=== PATIENT | female | born 1950 | race Caucasian/White ===

== ENCOUNTER → 2017-07-30 | Outpatient (CLI) | payer MEDICARE ==
[~2017-07-30] MED LIST: ATENOLOL DAILY; DULOXETINE
--- NOTE | 2017-07-30 10:36 | Diagnostic Imaging Report ---
INDICATION: Osteopenia. FINDINGS: Bone mineral analysis of the lumbar spine and both hips was performed. The bone mineral density of the lumbar spine from L2 to L4 is 1.036 with a T score of -1.4. The bone mineral density of the left femoral neck is 0.695 with a T score of -2.5. The bone mineral density of the right femoral neck is 0.704 with a T score of -2.4. IMPRESSION: Findings are consistent with osteopenia of the lumbar spine and right femoral neck with osteoporosis of the left femoral neck. Dictated by: Dictated on workstation # [id number]
== END ==
LOC: RAD 09:11
PROVIDERS: ATTEND Nurse Practitioner Family
DX: M85.88 Other specified disorders of bone density and structure, other site (principal); M81.0 Age-related osteoporosis without current pathological fracture
CPT/HCPCS: 77080

== ENCOUNTER 2017-09-01 13:00 | Outpatient (CLI) | payer MEDICARE ==
[~2017-09-01] VITALS: Ht 175.3 cm; Wt 72.6 kg
[~2017-09-01 13:00] MED LIST changes: +ALPR0.254 PO; +ASPI-999 PO; +ATEN100T PO; +BUSP10TA95 PO; +DULO60CA58 PO; +LEVO25TA5 PO; +LYSI500T37 PO; +OMEG-160 PO; +PARO20TA5 PO; +PRAV10TA PO
[2017-09-02] MEDS ORDERED: PANT40TA2 PO (12:24)
[2017-09-14] MEDS ORDERED: ATEN25TA PO (14:04)
== END 2017-09-01 13:45 ==
LOC: PREOP 13:00
PROVIDERS: ATTEND Surgery
DX: Z01.818 Encounter for other preprocedural examination (principal); Z12.11 Encounter for screening for malignant neoplasm of colon; K21.9 Gastro-esophageal reflux disease without esophagitis; Z80.0 Family history of malignant neoplasm of digestive organs

== ENCOUNTER 2017-09-02 09:57 | Day surgery (SDC) | payer MEDICARE ==
[~2017-09-02] VITALS: Ht 175.3 cm; Wt 72.6 kg
[2017-09-02 10:00] VITALS: BP 118/67
--- OUTSIDE RECORDS SUMMARY | 2017-09-02 10:02 | XMS REPORT | Continuity of Care Document ---
Author Author [facility] Organization [facility] Address Unknown Phone Unavailable Allergies Active Description Code Type Severity Reaction Onset Reported/Identified Relationship to Patient Clinical Status Yes alprazolam [id number] Drug Allergy Mild N/A 04/22/2011 Yes No Known Drug Allergies [id number] Drug Allergy Unknown N/A 09/01/2017 Medications There is no data. Problems Date Dx Coded Attending Type Code Diagnosis Diagnosed By 04/17/2014 KALIN HURLEY MD Ot V76.12 04/22/2014 KALIN HURLEY MD Ot V76.12 05/11/2014 KALIN HURLEY MD Ot V76.12 08/01/2014 Ot 611.72 08/01/2014 Ot V76.12 08/01/2014 Ot 793.80 08/01/2014 Ot V76.12 08/01/2014 Ot 530.89 08/01/2014 Ot V76.51 08/01/2014 Ot V76.12 08/28/2014 KALIN HURLEY MD Ot V76.12 08/28/2014 KALIN HURLEY MD Ot V76.12 08/29/2014 KALIN HURLEY MD Ot V76.12 08/29/2014 KALIN HURLEY MD Ot V76.12 09/06/2014 KALIN HURLEY MD Ot V76.12 09/06/2014 KALIN HURLEY MD Ot V76.12 09/06/2014 TAYLOR PRASAD Ot 789.03 09/08/2014 Ot 611.72 09/08/2014 Ot V76.12 09/08/2014 Ot 793.80 09/08/2014 Ot V76.12 09/08/2014 Ot 530.89 09/08/2014 Ot V76.51 09/08/2014 Ot V76.12 09/30/2014 KALIN HURLEY MD Ot V76.12 09/30/2014 MEI HANLEY, KALIN Thapa Ot V76.12 09/30/2014 TAYLOR PRASAD WIRE COILER MACHINE OPERATOR Ot 789.03 10/20/2014 MEI HANLEY, KALIN Thapa Ot V76.12 10/20/2014 MEI HANLEY, KALIN Thapa Ot V76.12 10/20/2014 TAYLOR PRASAD WIRE COILER MACHINE OPERATOR Ot 789.03 07/27/2017 TAYLOR PRASAD WIRE COILER MACHINE OPERATOR Ot M85.851 OTH DISRD OF BONE DENSITY AND STRUCTURE, 07/30/2017 MEI HANLEY, KALIN Thapa Ot V76.12 OTH SCREEN MAMMO-MALIGN NEOPLASM OF DIO 07/30/2017 MEI HANLEY, KALIN Thapa Ot V76.12 OTH SCREEN MAMMO-MALIGN NEOPLASM OF DIO 07/30/2017 TAYLOR PRASAD WIRE COILER MACHINE OPERATOR Ot 789.03 ABDOMINAL PAIN, RIGHT LOWER QUADRANT 07/30/2017 TAYLOR PRASAD WIRE COILER MACHINE OPERATOR Ot M85.851 OTH DISRD OF BONE DENSITY AND STRUCTURE, 07/30/2017 TAYLOR PRASAD WIRE COILER MACHINE OPERATOR Ot M85.851 OTH DISRD OF BONE DENSITY AND STRUCTURE, 07/31/2017 TAYLOR PRASAD WIRE COILER MACHINE OPERATOR Ot M81.0 AGE-RELATED OSTEOPOROSIS W/O CURRENT PAT 07/31/2017 TAYLOR PRASAD WIRE COILER MACHINE OPERATOR Ot M85.88 OTH DISRD OF BONE DENSITY AND STRUCTURE, 08/24/2017 TAYLOR PRASAD WIRE COILER MACHINE OPERATOR Ot M81.0 AGE-RELATED OSTEOPOROSIS W/O CURRENT PAT 08/24/2017 TAYLOR PRASAD WIRE COILER MACHINE OPERATOR Ot M85.88 OTH DISRD OF BONE DENSITY AND STRUCTURE, 09/01/2017 LEVY RICHARDS MD Ot K21.9 GASTRO-ESOPHAGEAL REFLUX DISEASE WITHOUT 09/01/2017 LEVY RICHARDS MD Ot Z01.818 ENCOUNTER FOR OTHER PREPROCEDURAL EXAMIN 09/01/2017 LEVY RICHARDS MD Ot Z12.11 ENCOUNTER FOR SCREENING FOR MALIGNANT NE 09/01/2017 LEVY RICHARDS MD Ot Z80.0 FAMILY HISTORY OF MALIGNANT NEOPLASM OF 09/01/2017 LEVY RICHARDS MD Ot K21.9 GASTRO-ESOPHAGEAL REFLUX DISEASE WITHOUT 09/01/2017 LEVY RICHARDS MD Ot Z01.818 ENCOUNTER FOR OTHER PREPROCEDURAL EXAMIN 09/01/2017 LEVY RICHARDS MD Ot Z12.11 ENCOUNTER FOR SCREENING FOR MALIGNANT NE 09/01/2017 LEVY RICHARDS MD M Ot Z80.0 FAMILY HISTORY OF MALIGNANT NEOPLASM OF 09/01/2017 LEVY RICHARDS MD Ot K21.9 GASTRO-ESOPHAGEAL REFLUX DISEASE WITHOUT 09/01/2017 LEVY RICHARDS MD Ot Z01.818 ENCOUNTER FOR OTHER PREPROCEDURAL EXAMIN 09/01/2017 LEVY RICHARDS MD Ot Z12.11 ENCOUNTER FOR SCREENING FOR MALIGNANT NE 09/01/2017 LEVY RICHARDS MD M Ot Z80.0 FAMILY HISTORY OF MALIGNANT NEOPLASM OF 09/01/2017 LEVY RICHARDS MD Ot K21.9 GASTRO-ESOPHAGEAL REFLUX DISEASE WITHOUT 09/01/2017 LEVY RICHARDS MD Ot Z01.818 ENCOUNTER FOR OTHER PREPROCEDURAL EXAMIN 09/01/2017 LEVY RICHARDS MD Ot Z12.11 ENCOUNTER FOR SCREENING FOR MALIGNANT NE 09/01/2017 LEVY RICHARDS MD Ot Z80.0 FAMILY HISTORY OF MALIGNANT NEOPLASM OF 09/02/2017 LEVY RICHARDS MD Ot K21.9 GASTRO-ESOPHAGEAL REFLUX DISEASE WITHOUT 09/02/2017 LEVY RICHARDS MD M Ot Z01.818 ENCOUNTER FOR OTHER PREPROCEDURAL EXAMIN 09/02/2017 LEVY RICHARDS MD Ot Z12.11 ENCOUNTER FOR SCREENING FOR MALIGNANT NE 09/02/2017 LEVY RICHARDS MD Ot Z80.0 FAMILY HISTORY OF MALIGNANT NEOPLASM OF Procedures There is no data. Results There is no data. Encounters ACCT No. Visit Date/Time Discharge Status Pt. Type Provider Facility Loc./Unit Complaint [id number] 09/01/2017 13:00:00 09/01/2017 13:45:00 DIS Outpatient LEVY RICHARDS MD [facility] PREOP COLONOSCOPY/EGD [id number] 07/30/2017 09:30:00 07/30/2017 23:59:59 CLS Outpatient TAYLOR PRASAD [facility] RAD OSTEOPENIA [id number] 08/29/2014 09:02:00 08/29/2014 23:59:59 CLS Outpatient TAYLOR PRASAD [facility] RAD RLQ PAIN [id number] 04/20/2014 08:15:00 04/20/2014 23:59:59 CLS Outpatient KALIN HURLEY MD [facility] RAD ROUTINE [id number] 04/13/2013 13:23:00 04/13/2013 23:59:59 CLS Outpatient KALIN HURLEY MD [facility] RAD SCREENING [id number] 09/02/2017 11:00:00 PEN Preadmit KATE MENDOZA MD [facility] ENDO SCREENING/FAMILY HX COLON CA/REFLUX [id number] 08/01/2014 11:25:00 Document Registration [id number] 08/01/2014 11:25:00 Document Registration [id number] 08/01/2014 11:25:00 Document Registration [id number] 01/29/2012 07:14:00 Document Registration [id number] 04/22/2011 06:47:00 Document Registration [id number] 04/17/2010 10:52:00 Document Registration [id number] 04/17/2009 14:40:00 Document Registration [id number] 04/12/2009 07:12:00 Document Registration [id number] 02/09/2017 09:38:07 02/09/2017 23:59:59 CLS Outpatient [id number] 08/29/2014 09:03:20 ACT Document Registration
[2017-09-02] MEDS: NS IV 500 ML 500 ML IV PRN ×2 (10:05→11:17)
[2017-09-02] MEDS ORDERED: NS IV 500 ML 500 ML ONE ×2 (10:11→11:12)
[2017-09-02] MEDS ORDERED: fentaNYL INJECTION 100 MCG/2 ML AMP IVP PRN (10:15)
[2017-09-02] MEDS ORDERED: HURRICAINE EXT TUBE (BENZOCAINE) XX PRN (10:15)
[2017-09-02] MEDS ORDERED: MIDAZOLAM 2 MG/2 ML (VERSED) VIAL IVP PRN (10:15)
[2017-09-02] MEDS ORDERED: LIDOCAINE JELLY 2% (XYLOCAINE) 5 ML TUBE MM PRN (10:15)
--- NOTE | 2017-09-02 10:34 | Conscious Sedation/ASA ---
Conscious Sedation Pre-Proced Time Reviewed: 10:30 ASA Class: 2 Airway Mallampati Classification: ([place] appropriate class) I. II. III, IV Lungs Heart ASA score ASA 1: a normal healthy patient ASA 2: a patient with a mild systemic disease (mid diabetes, controlled hypertension, obesity ASA 3: a patient with a severe systemic disease that limits activity (angina , COPD, prior Myocardial infarction) ASA 4: a patient with an incapacitating disease that is a constant threat to life (CHF, renal failure) ASA 5: a moribund patient not expected to survive 24 hrs. (ruptured aneurysm) ASA 6: a declared brain patient whose organs are being harvested. For emergent operations, add the letter E after the classification Grade 2 Sedation Plan: Analgesia, Amnesia, Plan communicated to team members, Discussed options with patient/fam, Discussed risks with patient/fam Note The patient is an appropriate candidate to undergo the planned procedure, sedation, and anesthesia. The patient immediately re-assessed prior to indication. KAET MENDOZA MD September 02, 2017 10:34 am
--- NOTE | 2017-09-02 10:35 | Progress Note-Pre Operative ---
Pre-Operative Progress Note H&P Reviewed The H&P was reviewed, patient examined and no changes noted. Date Seen by Provider: September 02, 2017 Time Seen by Provider: 10:30 Date H&P Reviewed: September 02, 2017 Time H&P Reviewed: 10:30 Pre-Operative Diagnosis: GERD, family hx colon ca KATE MENDOZA MD September 02, 2017 10:35 am
[2017-09-02] MEDS ORDERED: MIDAZOLAM 2 MG/2 ML (VERSED) VIAL ONE ×3 (10:37)
[2017-09-02] MEDS ORDERED: LIDOCAINE JELLY 2% (XYLOCAINE) 5 ML TUBE ONE (10:38)
[2017-09-02] MEDS ORDERED: fentaNYL INJECTION 100 MCG/2 ML AMP ONE ×2 (10:38)
[2017-09-02] MEDS ORDERED: HURRICAINE EXT TUBE (BENZOCAINE) ONE (10:38)
[2017-09-02] MEDS ORDERED: ONDANSETRON 4 MG/2 ML (SDV) Z0FRAN IV PRN (10:45)
[2017-09-02] MEDS ORDERED: morphine INJ 10 MG/ML 1ML (SYR OR VIAL) IV PRN (10:45)
[2017-09-02] MEDS ORDERED: HYDROcodone/APAP 5 MG/325 MG (LORTAB) TAB PO PRN (10:45)
[2017-09-02] MEDS: MIDAZOLAM 2 MG/2 ML (VERSED) VIAL IVP PRN ×5 (10:45→11:43)
[2017-09-02] MEDS ORDERED: ACETAMINOPHEN 325 MG TABLET/CAPLET (TYLENOL) PO PRN (10:45)
[2017-09-02] MEDS: fentaNYL INJECTION 100 MCG/2 ML AMP IVP PRN ×4 (11:21→11:58)
[2017-09-02] MEDS ORDERED: PANT40TA2 PO (12:24)
--- NOTE | 2017-09-02 12:24 | Progress Note-Post Operative ---
Post-Operative Progess Note Surgeon (s)/Materials Supervisor (s) Surgeon KATE MENDOZA MD Materials Supervisor: none Pre-Operative Diagnosis GERD, family hx colon ca Post-Operative Diagnosis reflux esophagitis(class B-C), moderate gastritis. chronic stage 1 ext and int hemorrhoids. Procedure & Operative Findings Date of Procedure 09/02/17 Procedure Performed/Findings EGD with bx. Colonoscopy. Anesthesia Type CS Estimated Blood Loss Estimated blood loss (mL): minimal Specimens/Packing Specimens Removed GE jxn, antrum KATE MENDOZA MD September 02, 2017 12:24 pm
--- NOTE | 2017-09-02 12:25 | Discharge Inst-Surgical ---
D/C Lap Instructions-KIDO New, Converted, or Re-Newed RX: RX on Chart Follow Up 5 yrs Activity as tolerated High Fiber Diet 25g or more per day Avoid Alcohol, Caffeine, Spicy [place] and Acid foods. Drink 64 fluid oz or more of fluids per day. Symptoms to Report: Fever over 101 degree F, Nausea/Vomiting If any problems/questions: Contact your physician or go to Emergency Room KATE MENDOZA MD September 02, 2017 12:25 pm
[2017-09-02 12:30] VITALS: BP 116/64
[2017-09-02 13:00] VITALS: BP 100/45
--- NOTE | 2017-09-02 22:37 | OPERATIVE REPORT ---
DATE OF SERVICE: 09/02/2017 ATTENDING PHYSICIAN: Dr. Casi Penn. PREOPERATIVE DIAGNOSES: Gastroesophageal reflux disease, family history of colon cancer. POSTOPERATIVE DIAGNOSES: Reflux esophagitis between class B and C. No hiatal hernia. Moderate gastritis. Mild chronic stage I external and internal hemorrhoids. Remainder of the rectum and colon were normal. PROCEDURE: EGD with biopsy, colonoscopy. SURGEON: Kate Mendoza MD ANESTHESIA: Conscious sedation. ESTIMATED BLOOD LOSS: Minimal. FINDINGS: EGD, reflux esophagitis between class B and C. No hiatal hernia. Moderate severity gastritis. Pylorus and duodenum appeared normal. Colonoscopy, chronic, mild stage I external and internal hemorrhoids. Remainder of the rectum and colon were normal. There were no polyps identified. DISPOSITION: The patient tolerated the procedure well. INDICATIONS: The patient is a 67-year-old female who has had issues with gastroesophageal reflux disease. She reports that she has had this for some amount of time; however, symptoms have worsened. She was on Omeprazole before, however, states that she had read potential negative side effects and discontinued the medication. She reports epigastric burning sensation as well as crampy pain. She also does have a family history of colon cancer with her mother being diagnosed with the disease at age 85. She does not report any red blood per rectum nor any dark tarry stools. DESCRIPTION OF PROCEDURE: The patient was brought to the endoscopy suite, laid in the left lateral decubitus position. After adequate IV pain and sedating medications and conscious sedation anesthesia, the mouthpiece was applied. Endoscope was placed in the mouth, visualizing the pharynx and hypopharyngeal region. Vocal cords, epiglottis, and vallecula identified and appeared to be normal. The endoscope was then gently intubated into the esophageal opening and esophagus insufflated. The endoscope was then advanced to the first, second and third portion of the esophagus at the level of the GE junction. A significant reflux esophagitis between class B and C identified. The biopsies were taken with forceps with visualization of good hemostasis. No strictures identified. The endoscope was then easily advanced in the stomach and endoscope retroflexed visualizing no hiatal hernia. Moderate severity gastritis was noted of the stomach antrum with mild superficial erosions. A biopsy was taken of the stomach, antrum with forceps with visualization good hemostasis. The endoscope was then advanced to the pylorus into the first and second portion of the duodenum, which appeared normal with no distal obstructions. The endoscope was then slowly withdrawn taking a second look and suctioning of residual air with no additional findings. The patient tolerated this portion of the procedure well. Due to her significant reflux esophagitis as well as gastritis, we do recommend a proton pump inhibitor acid record changer assembler. The side effect profile is a factor; however, the risk is low and the benefits do outweigh the risks in her scenario. We will start her on Protonix 40 mg daily as well as the necessary lifestyle and diet accommodation including small and more frequent meals, avoidance of eating at night as well as head elevation while lying supine. She also needs to avoid caffeinated beverages, spicy, greasy, and acidic foods. Under the same anesthesia, we then proceeded with the colonoscopy portion of the procedure. A digital rectal examination was performed, which revealed chronic mild stage I external and internal hemorrhoids, not actively edematous nor inflamed and no bleeding. Normal sphincter tone was felt and there were no palpable masses. The endoscope was then intubated into the anus and rectum, gently insufflated. The endoscope was then advanced to the valves adhesing the rectum with no polyps or neoplasm identified. We then proceeded through the sigmoid colon where no diverticulosis identified. We then proceeded through the remainder of the descending, transverse, and ascending colon to the cecum. These segments were normal. There were no polyps or any neoplasms identified. The endoscope was then slowly withdrawn and we are taking a second look and suctioning of residual air with no additional findings. The patient tolerated the procedure well. We will recommend continued medical management with a high fiber diet with at least 25 to 30 grams of fiber per day as well as at least 64 fluid ounces of water daily to promote soft stools on a daily basis. Because of her family history of colon cancer, we will recommend a followup colonoscopy in approximately 5 years. Job ID: [id number] DocumentID: [id number] Dictated Date: 09/02/2017 12:16:48 Contour Band Saw Operator Vertical Date: 09/02/2017 22:36:32 Dictated By: KATE MENDOZA MD
[2017-09-14] MEDS ORDERED: ATEN25TA PO (14:04)
== END 2017-09-02 13:05 | disposition home or self-care (01) ==
LOC: ENDO 09:57
PROVIDERS: ATTEND Surgery
DX: K21.0 Gastro-esophageal reflux disease with esophagitis (principal); K64.0 First degree hemorrhoids; Z80.0 Family history of malignant neoplasm of digestive organs; K29.70 Gastritis, unspecified, without bleeding; F41.9 Anxiety disorder, unspecified; F32.9 Major depressive disorder, single episode, unspecified; M81.0 Age-related osteoporosis without current pathological fracture; E78.00 Pure hypercholesterolemia, unspecified; E03.9 Hypothyroidism, unspecified; I34.1 Nonrheumatic mitral (valve) prolapse; Z79.899 Other long term (current) drug therapy; Z83.71 Family history of colonic polyps
CPT/HCPCS: 88305

== ENCOUNTER → 2017-09-14 | Outpatient (CLI) | payer MEDICARE ==
[~2017-09-14] VITALS: Ht 175.3 cm; Wt 71.2 kg
[~2017-09-14] MED LIST changes: +ATEN25TA PO; +DENOSUMAB 60 MG/1 ML (PROLIA) SQ SCH; +PANT40TA2 PO
[2017-09-14 14:26] VITALS: BP 120/58
== END ==
LOC: SDC 13:29
PROVIDERS: ATTEND Family Medicine
DX: M81.0 Age-related osteoporosis without current pathological fracture (principal)
CPT/HCPCS: 96372

== ENCOUNTER → 2018-03-22 | Outpatient (CLI) | payer MEDICARE ==
[~2018-03-22] VITALS: Ht 175.3 cm; Wt 71.2 kg
[2018-03-22 13:30] VITALS: BP 123/61
== END ==
LOC: SDC 13:12
PROVIDERS: ATTEND Family Medicine
DX: M81.0 Age-related osteoporosis without current pathological fracture (principal)
CPT/HCPCS: 96372

== ENCOUNTER 2018-09-20 12:51 | Outpatient (CLI) | payer MEDICARE ==
[~2018-09-20] VITALS: Ht 175.3 cm; Wt 71.2 kg
[~2018-09-20 12:51] MED LIST changes: -DENOSUMAB 60 MG/1 ML (PROLIA) SQ SCH
[2018-09-20 13:15] VITALS: BP 112/70
[2018-09-20] MEDS ORDERED: DENOSUMAB 60 MG/1 ML (PROLIA) SQ ONE (13:15)
== END 2018-09-20 13:15 | disposition home or self-care (01) ==
LOC: SDC 12:51
PROVIDERS: ATTEND Nurse Practitioner Family
DX: M81.0 Age-related osteoporosis without current pathological fracture (principal)
CPT/HCPCS: 96372

== ENCOUNTER → 2019-03-28 | Outpatient (CLI) | payer MEDICARE ==
[~2019-03-28] VITALS: Ht 170 cm; Wt 70.0 kg
[~2019-03-28] MED LIST changes: +DENOSUMAB 60 MG/1 ML (PROLIA) SQ ONE; -DULO60CA58 PO; +DULO60CA59 PO
[2019-03-28 13:30] VITALS: BP 117/47
== END ==
LOC: SDC 13:09
PROVIDERS: ATTEND Nurse Practitioner Family
DX: M81.0 Age-related osteoporosis without current pathological fracture (principal)
CPT/HCPCS: 96372

== ENCOUNTER → 2019-09-27 | Outpatient (CLI) | payer MEDICARE ==
[~2019-09-27] MED LIST changes: -DENOSUMAB 60 MG/1 ML (PROLIA) SQ ONE; +DENOSUMAB 60 MG/1 ML (PROLIA) SQ SCH
[2019-09-27 13:29] VITALS: BP 128/65
== END ==
LOC: SDC 13:05
PROVIDERS: ATTEND Nurse Practitioner Family
DX: M81.0 Age-related osteoporosis without current pathological fracture (principal)
CPT/HCPCS: 96372

== ENCOUNTER 2020-04-02 12:59 | Outpatient (CLI) | payer MEDICARE, OTHER ==
[~2020-04-02 12:59] MED LIST changes: +ALPR.25T PO; -ALPR0.254 PO; -DENOSUMAB 60 MG/1 ML (PROLIA) SQ SCH
[2020-04-02 13:15] VITALS: BP 106/74
[2020-04-02] MEDS ORDERED: DENOSUMAB 60 MG/1 ML (PROLIA) SQ ONE (13:15)
== END 2020-04-02 13:22 | disposition home or self-care (01) ==
LOC: SDC 12:59
PROVIDERS: ATTEND Nurse Practitioner Family
DX: M81.0 Age-related osteoporosis without current pathological fracture (principal)
CPT/HCPCS: 96372

== ENCOUNTER → 2020-07-30 | Outpatient (CLI) | payer MEDICARE, OTHER | LOC: CARD 12:41 | PROVIDERS: ATTEND Nurse Practitioner Family | DX: R06.02 Shortness of breath (principal); I10 Essential (primary) hypertension | CPT/HCPCS: 93306 ==

== ENCOUNTER → 2020-09-11 | Outpatient (CLI) | payer MEDICARE ==
--- NOTE | 2020-09-11 11:30 | Diagnostic Imaging Report ---
INDICATION: Postmenopausal. COMPARISON: 07/30/2017 FINDINGS: The total T score for the spine is -1.6. On the prior exam the T score is -1.4. The total T score for each hip is -1.1. Previously the T score for the left hip is -1.2 and for the right hip -1.6. The T score for the left femoral neck is -2.3 and for the right femoral neck -2.0. The respective T-scores on the prior exam are -2.5 and -2.4. AP Spine L1-L4: [BMD (g/cm2): 1.005] [T-Score: -1.6] [Z-Score: -0.1] [BMD Previous: 1.036] [BMD % Change: -3.0] LT Hip Neck: [BMD (g/cm2): 0.723] [T-Score: -2.3] [Z-Score: -0.6] LT Hip Total: [BMD (g/cm2):0.873] [T-Score:-1.1] [Z-Score: 0.3] [BMD Previous: 0.853] [BMD % Change: 2.1] RT Hip Neck: [BMD (g/cm2):0.754] [T-Score:-2.0] [Z-Score:-0.4] RT Hip Total: [BMD (g/cm2):0.867] [T-score:-1.1] [Z-Score:0.3] [BMD Previous:0.808] [BMD % Change:7.3] *Indicates significant change from prior examination based on 95% confidence level. World Health Organization criteria for BMD interpretation classify patients as Normal (T-score at or above -1.0), Osteopenic (T-score between -1.0 and -2.5) or Osteoporotic (T-score at or below -2.5). LIMITATIONS AND MODIFICATION: None. FRACTURE RISK (FRAX SCORE): The ten year probability of (%): Major Osteoporotic Fracture: [13.5] Hip Fracture: [3.3] IMPRESSION: 1. There are mixed results. There has been a slight decrease in the bone mineral density of the spine and a slight increase in the bone mineral density of each total hip. All these values still fall within the range of osteopenia. 2. There has also been a slight increase in the bone mineral density of each femoral neck. However, the T score values still indicate severe osteopenia. 3. See below National Osteoporosis Foundation guidelines on when to potentially initiate pharmacologic therapy. Based on the National Osteoporosis Foundation Guidelines, pharmacologic treatment should be initiated in any of the following, unless clinical conditions suggest otherwise: * Any patient with prior fragility fracture of the hip or vertebrae. A spine fracture indicates 5X risk for subsequent spine fracture and 2X risk for subsequent hip fracture. * Osteoporosis (T-score <-2.5). * Postmenopausal women and men age 50 and older with low bone mass/osteopenia (T-score between -1.0 and -2.5) by DXA and 10-year major osteoporotic fracture greater than 20% or a 10-year probability of hip fracture greater than 3%. These fracture risks are supplied above in the FRAX score, if applicable. * Clinician judgement and/or patient preferences may indicate treatment for people with 10-year fracture probabilities above or below these levels. Dictated by: Dictated on workstation # [id number]
== END ==
LOC: RAD 10:30
PROVIDERS: ATTEND Nurse Practitioner Family
DX: M85.80 Other specified disorders of bone density and structure, unspecified site (principal); Z78.0 Asymptomatic menopausal state
CPT/HCPCS: 77080

== ENCOUNTER → 2020-10-05 | Outpatient (CLI) | payer MEDICARE ==
[~2020-10-05] MED LIST changes: +DENOSUMAB 60 MG/1 ML (PROLIA) SQ ONE
[2020-10-05 13:27] VITALS: BP 118/58
== END ==
LOC: SDC 13:08
PROVIDERS: ATTEND Nurse Practitioner Family
DX: M81.0 Age-related osteoporosis without current pathological fracture (principal)
CPT/HCPCS: 96372

== ENCOUNTER → 2021-04-24 | Outpatient (CLI) | payer MEDICARE ==
[2021-04-24 13:48] VITALS: BP 120/76
== END ==
LOC: SDC 13:22
PROVIDERS: ATTEND Nurse Practitioner Family
DX: M81.0 Age-related osteoporosis without current pathological fracture (principal)
CPT/HCPCS: 96372

== ENCOUNTER → 2021-10-29 | Outpatient (CLI) | payer MEDICARE ==
[2021-10-29 11:50] VITALS: BP 121/60
== END ==
LOC: SDC 11:26
PROVIDERS: ATTEND Nurse Practitioner Family
DX: M85.80 Other specified disorders of bone density and structure, unspecified site (principal)
CPT/HCPCS: 96372

== ENCOUNTER 2022-05-22 10:00 | Outpatient (CLI) | payer MEDICARE ==
[~2022-05-22] VITALS: Ht 175 cm; Wt 70.9 kg
[~2022-05-22 10:00] MED LIST changes: -DENOSUMAB 60 MG/1 ML (PROLIA) SQ ONE
[2022-05-22 10:30] VITALS: BP 128/59
[2022-05-22] MEDS: DENOSUMAB 60 MG/1 ML (PROLIA) SQ SCH (10:45)
== END 2022-05-22 10:40 ==
LOC: SDC 10:00
PROVIDERS: ATTEND Nurse Practitioner Family
DX: M85.80 Other specified disorders of bone density and structure, unspecified site (principal)
CPT/HCPCS: 96372

== ENCOUNTER 2022-11-20 09:57 | Outpatient (CLI) | payer MEDICARE ==
[2022-11-20 10:00] VITALS: BP 128/78
[2022-11-20] MEDS ORDERED: DENOSUMAB 60 MG/1 ML (PROLIA) SQ SCH (10:15)
== END 2022-11-20 10:25 | disposition home or self-care (01) ==
LOC: SDC 09:57
PROVIDERS: ATTEND Family Medicine
DX: M81.0 Age-related osteoporosis without current pathological fracture (principal)
CPT/HCPCS: 96372